=== PATIENT | female | born 1965 | race Caucasian/White ===

== ENCOUNTER → 2018-01-05 | Outpatient (CLI) | payer OTHER ==
[~2018-01-05] MED LIST: ARTIFICIAL TEAR15 M1 OP; B12INJ; BUTALB-APAP-CA1 EACH PO; CARBAMAZEPINE200 M5 PO; CELEXA 20 MG TA20 M1 PO; CELEXA 20 MG TA20 MG PO; CELEXA40 MG PO; CIPROFLOXACIN500 M1 PO; CLEOCIN HCL150 MG PO; COLACE100 MG PO; ETODOLAC 400 M400 M1 PO; FLEXERIL PO; GRALISE1 EACH PO; HYDROCODONE-AP1 EA11 PO; HYDROCODONE-AP1 EAC6 PO; HYDROCODONE-APA1 TA1; IBUPROFEN 800800 M1 PO; INDOMETHACIN 5050 MG PO; LAMICTAL 25 MG25 M1 PO; MEDROLDOSEPACK PO; METFORMIN HCL500 MG PO; METHADONE HCL 110 M1 PO; METHADONE PO; NAPROSYN500 MG PO; NEURONTIN 300300 M1 PO; NORCO 5-325 TA1 EAC1 PO; NORCO 5-325 TA1 EACH PO; OXYCODONE HCL 55 MG PO; OXYCODONE HCL5 M1 PO; OXYIR5 MG PO; PAXIL PO; PAXIL40 MG PO; PERCOCET 10-321 EACH PO; PERCOCET 5-3251 EACH PO; PERCOCET 7.5-31 EACH PO; PHENOBARBITAL60 MG PO; POLYSPORIN OINT15 GM TP; REQUIP XL2 MG PO; ROBAXIN500 MG PO; STOOL SOFTENER1 EAC2 PO; TOBRADEX ST EYE5 ML OP; TOPAMAX 25 MG T25 M1 PO; TYLENOL PM PO; ULTRAM50 MG PO; VICODIN; VICODIN 5-5001 EACH PO; VITAMIN D 5050000 I1; ZOCOR20 MG PO; ZOLOFT 50 MG TA50 M1 PO; ZPAK PO
== END ==
LOC: M.RAD 10:06
DX: Z12.31 Encounter for screening mammogram for malignant neoplasm of breast (principal)

== ENCOUNTER 2018-05-29 14:14 | Emergency (ER) | payer OTHER, SELFPAY ==
[~2018-05-29] VITALS: Ht 165.1 cm; Wt 81.7 kg
[~2018-05-29 14:14] MED LIST changes: -ROBAXIN500 MG PO
[2018-05-29] MEDS ORDERED: ROBAXIN500 MG PO (15:39)
[2018-05-29] MEDS ORDERED: MEDROLDOSEPACK PO (15:39)
[2018-05-29 15:48] VITALS: BP 111/78
== END 2018-05-29 15:48 | disposition home or self-care (01) ==
LOC: M.ERS 14:14
DX: S70.01XA Contusion of right hip, initial encounter (principal); M54.31 Sciatica, right side; F41.9 Anxiety disorder, unspecified; E11.9 Type 2 diabetes mellitus without complications; F32.9 Major depressive disorder, single episode, unspecified; F17.210 Nicotine dependence, cigarettes, uncomplicated; Z88.0 Allergy status to penicillin; Z88.8 Allergy status to other drugs, medicaments and biological substances; Z90.49 Acquired absence of other specified parts of digestive tract; Z90.710 Acquired absence of both cervix and uterus; W07.XXXA Fall from chair, initial encounter; Y93.89 Activity, other specified; Y92.89 Other specified places as the place of occurrence of the external cause; Y99.8 Other external cause status

== ENCOUNTER → 2018-06-23 | Outpatient (CLI) | payer OTHER, SELFPAY ==
[~2018-06-23] MED LIST changes: +ROBAXIN500 MG PO
== END ==
LOC: M.MRI 16:47
DX: M51.36 Other intervertebral disc degeneration, lumbar region (principal); M48.062 Spinal stenosis, lumbar region with neurogenic claudication; M51.26 Other intervertebral disc displacement, lumbar region; E11.9 Type 2 diabetes mellitus without complications; Z91.81 History of falling; Z87.891 Personal history of nicotine dependence; Z88.0 Allergy status to penicillin

== ENCOUNTER → 2019-01-11 | Outpatient (CLI) | payer OTHER, SELFPAY | LOC: M.RAD 12:59 → M.MRI 14:30 | DX: Z12.31 Encounter for screening mammogram for malignant neoplasm of breast (principal); M19.012 Primary osteoarthritis, left shoulder ==

== ENCOUNTER 2019-02-03 20:08 | Emergency (ER) | payer OTHER, SELFPAY ==
[~2019-02-03] VITALS: Ht 165.1 cm; Wt 73.5 kg
[2019-02-03] MEDS ORDERED: TOPAMAX 25 MG T25 M1 PO (20:22)
[2019-02-03 20:34] LABS: URINE BILIRUBIN 1+ (Negative); URINE BLOOD NEGATIVE (Negative); URINE CLARITY CLEAR; URINE COLOR YELLOW; URINE GLUCOSE-RANDOM NEGATIVE (Negative); URINE KETONES 2+ (Negative); URINE LEUKOCYTES-REFLEX NEGATIVE (Negative); URINE NITRITE-REFLEX NEGATIVE (Negative); URINE PROTEIN NEGATIVE (Negative); URINE UROBILINOGEN 0.2 E.U./dl (0.2-1.0)
[2019-02-03 20:38] LABS: ICTOTEST (BILI CONFIRMATORY) Negative (Negative)
[2019-02-03 21:26] LABS: ABSOLUTE BASOPHILS 0.1 thou/uL (0.0-0.2); ABSOLUTE EOSINOPHILS 0.1 thou/uL (0.0-0.7); ABSOLUTE LYMPHOCYTES 1.7 thou/uL (0.8-5.3); ABSOLUTE MONOCYTES 0.6 thou/uL (0.0-1.2); ABSOLUTE NEUTROPHILS 5.3 thou/uL (1.6-8.1); BASOPHILS 0.7 %; EOSINOPHILS 1.6 %; HEMATOCRIT 42.6 % (37.0-47.0); HEMOGLOBIN 14.2 gm/dL (12.0-15.0); LYMPHOCYTES 22.1 %; MCH 31.9 pg (26.0-34.0); MCHC 33.4 g/dL (28.0-37.0); MCV 95.6 fL (80.0-100.0); MONOCYTES 7.2 %; MPV 10.3 fl. (7.2-11.1); NUCLEATED RBCS 0 /100WBC; PLATELET COUNT* 224 thou/uL (150-400); POLYS 68.4 %; RBC 4.45 mil/uL (4.20-5.00); RDW-CV 14.4 % (10.5-14.5); WBC 7.8 thou/uL (4.0-11.0)
[2019-02-03 21:33] LABS: ALBUMIN 3.6 g/dL (3.4-5.0); CALCIUM 9.3 mg/dL (8.5-10.1); POTASSIUM 3.4 mmol/L (3.5-5.1); TOTAL BILIRUBIN 0.3 mg/dL (<0.1-1.0); TOTAL PROTEIN 7.1 g/dL (6.4-8.2)
[2019-02-03] MEDS ORDERED: NORCO 5-325 TA1 EACH PO (23:25)
[2019-02-03] MEDS ORDERED: IBUPROFEN 600600 M1 PO (23:25)
[2019-02-04 00:11] VITALS: BP 110/68
== END 2019-02-04 00:11 | disposition home or self-care (01) ==
LOC: M.ERS 20:08
PROVIDERS: Physician Assistant
DX: R10.2 Pelvic and perineal pain (principal); F17.210 Nicotine dependence, cigarettes, uncomplicated; E11.9 Type 2 diabetes mellitus without complications; F41.9 Anxiety disorder, unspecified; F32.9 Major depressive disorder, single episode, unspecified; Z98.890 Other specified postprocedural states; Z90.49 Acquired absence of other specified parts of digestive tract; Z90.710 Acquired absence of both cervix and uterus; Z88.0 Allergy status to penicillin; Z88.2 Allergy status to sulfonamides; Z91.048 Other nonmedicinal substance allergy status; Z88.8 Allergy status to other drugs, medicaments and biological substances

== ENCOUNTER → 2019-02-22 | Outpatient (CLI) | payer OTHER, SELFPAY ==
[~2019-02-22] MED LIST changes: +IBUPROFEN 600600 M1 PO
== END ==
LOC: M.MRI 07:04
DX: M47.24 Other spondylosis with radiculopathy, thoracic region (principal); M47.22 Other spondylosis with radiculopathy, cervical region; M48.02 Spinal stenosis, cervical region

== ENCOUNTER 2019-09-05 19:08 | Emergency (ER) | payer OTHER, SELFPAY ==
[~2019-09-05] VITALS: Ht 165.1 cm; Wt 68.0 kg
[2019-09-05 19:13] VITALS: BP 122/69
[2019-09-05] MEDS ORDERED: CELEXA40 MG PO (19:21)
[2019-09-05] MEDS ORDERED: DOXYCYCLINE 10100 MG PO (19:49)
== END 2019-09-05 19:57 | disposition home or self-care (01) ==
LOC: M.ERS 19:08
DX: N76.4 Abscess of vulva (principal); F41.9 Anxiety disorder, unspecified; F32.9 Major depressive disorder, single episode, unspecified; F17.210 Nicotine dependence, cigarettes, uncomplicated; Z90.710 Acquired absence of both cervix and uterus; Z90.49 Acquired absence of other specified parts of digestive tract; Z98.890 Other specified postprocedural states; Z88.0 Allergy status to penicillin; Z88.2 Allergy status to sulfonamides; Z88.5 Allergy status to narcotic agent; Z91.048 Other nonmedicinal substance allergy status

== ENCOUNTER → 2020-05-20 | Outpatient (CLI) | payer OTHER ==
[~2020-05-20] MED LIST changes: +DOXYCYCLINE 10100 MG PO
== END ==
LOC: M.RAD 11:31
PROVIDERS: ATTEND Family Medicine
DX: M16.0 Bilateral primary osteoarthritis of hip (principal); M85.88 Other specified disorders of bone density and structure, other site

== ENCOUNTER 2020-09-01 08:42 | Emergency (ER) | payer OTHER ==
[~2020-09-01] VITALS: Ht 165.1 cm; Wt 72.6 kg
[2020-09-01] MEDS ORDERED: MEDROLDOSEPACK PO (11:00)
[2020-09-01] MEDS ORDERED: NORCO 5-325 TA1 EAC2 PO (11:00)
[2020-09-01 11:10] VITALS: BP 115/68
== END 2020-09-01 11:10 | disposition home or self-care (01) ==
LOC: M.ERS 08:42
DX: M13.871 Other specified arthritis, right ankle and foot (principal); M10.071 Idiopathic gout, right ankle and foot; E11.9 Type 2 diabetes mellitus without complications; F17.210 Nicotine dependence, cigarettes, uncomplicated; Z88.0 Allergy status to penicillin; Z88.2 Allergy status to sulfonamides; Z90.49 Acquired absence of other specified parts of digestive tract; Z98.890 Other specified postprocedural states; Z90.710 Acquired absence of both cervix and uterus; Z88.5 Allergy status to narcotic agent

== ENCOUNTER → 2021-07-21 | Outpatient (CLI) | payer OTHER ==
[~2021-07-21] MED LIST changes: +NORCO 5-325 TA1 EAC2 PO
== END ==
LOC: M.ULTRA 11:30
PROVIDERS: ATTEND Nurse Practitioner
DX: R19.09 Other intra-abdominal and pelvic swelling, mass and lump (principal)